=== PATIENT | male | born 1960 | race Caucasian/White ===

== ENCOUNTER 2019-06-15 09:27 | Day surgery (SDC) | payer BC ==
[2019-06-13 13:37] VITALS: BMI 29.5
[~2019-06-15 09:27] MED LIST: LACTATED RINGERS 1,000 ML IV SCH; LIDOCAINE 1% 20 ML VIAL (10MG/ML) FOR IV START INTRADERMA PRN
[2019-06-15 10:44] VITALS: RESP 16; TEMP 97
[2019-06-15] MEDS ORDERED: PROPOFOL 10 MG/ML 20 ML VIAL IV ONE (11:01)
--- NOTE | 2019-06-15 11:31 | P.PCN ---
Date of Procedure: 06/15/19 Procedure(s) Performed: BRIEF HISTORY: Patient is a 58-year-old pleasant male scheduled for an elective colonoscopy as a part of screening for colon rectal neoplasia. He has family history of colon cancer diagnosed in his father at age 72. His last colonoscopy was 5 years ago. PROCEDURE PERFORMED: Colonoscopy snare polypectomy. PREOPERATIVE DIAGNOSIS: Screening for colon cancer/family history of colon cancer. IV sedation per Anesthesia. PROCEDURE: After informed consent was obtained, the patient, was brought into the endoscopy unit. IV sedation was administered by Anesthesia under continuous monitoring. Digital rectal examination was normal. Initially the Olympus CF-160 flexible video colonoscope was then inserted in the rectum, gradually advanced into the cecum without any difficulty. Careful examination was performed as the scope was gradually being withdrawn. Ileocecal valve and the appendiceal orifice were visualized and appeared normal. Prep was excellent. Mucosa of the cecum, appeared normal. In the ascending colon there was a 5 mm polyp that was removed by snare polypectomy. Rest of the ascending colon, transverse colon, descending colon, sigmoid colon, and rectum appeared normal. In the rectosigmoid colon at 20 cm from the anal was there was a 1 cm pedunculated polyp that was removed by snare polypectomy. Retroflexion was performed in the rectum and no lesions were seen. The patient tolerated the procedure well. IMPRESSION: 5 mm ascending colon polyp status post polypectomy 1 cm pedunculated rectosigmoid polyp status post polypectomy RECOMMENDATIONS: Findings of this examination were discussed with the patient as well as his family. He was advised to follow with the biopsy sites. If the biopsy shows an adenoma he can have a repeat colonoscopy in 3-5 years.
[2019-06-15 11:44] VITALS: BP 116/79; PULSE 64
== END 2019-06-15 13:31 | disposition home or self-care (01) ==
LOC: ORWHC2ENDO 09:27
PROVIDERS: ATTEND Internal Medicine Gastroenterology
DX: Z12.11 Encounter for screening for malignant neoplasm of colon (principal); D12.7 Benign neoplasm of rectosigmoid junction; D12.2 Benign neoplasm of ascending colon; I10 Essential (primary) hypertension; Z79.899 Other long term (current) drug therapy; Z80.0 Family history of malignant neoplasm of digestive organs
CPT/HCPCS: 88305; 45385; J2704